=== PATIENT | male | born 1975 | race Hispanic/Latino ===

== ENCOUNTER 2022-07-02 10:34 | Emergency (ER) | payer OTHER ==
[~2022-07-02] VITALS: Ht 172.7 cm; Wt 131.1 kg
[2022-07-02] MEDS ORDERED: LIDOCAINE 2%-EPI 1:200,000 20 ML VIAL IJ SCH (11:00)
[2022-07-02] MEDS ORDERED: TETANUS/DIPHTHERIA TOXOID [ADULT] 0.5 ML VIAL IM ONE (11:00)
[2022-07-02] MEDS ORDERED: BACITRACIN 1 EACH PACKET TP ONE (11:30)
[2022-07-02 12:08] VITALS: BP 165/89
== END 2022-07-02 12:09 | disposition home or self-care (01) ==
LOC: EDH 10:34
DX: S61.512A Laceration without foreign body of left wrist, initial encounter (principal); W26.8XXA Contact with other sharp object(s), not elsewhere classified, initial encounter; Y93.89 Activity, other specified; Y92.89 Other specified places as the place of occurrence of the external cause; Y99.8 Other external cause status
CPT/HCPCS: 99283; 90714; 90471; 12002; J3490

== ENCOUNTER 2022-11-07 12:09 | Emergency (ER) | payer BC, OTHER ==
[~2022-11-07] VITALS: Ht 172.7 cm; Wt 129.3 kg
[2022-11-07] MEDS ORDERED: CYCL10TA16 PO (13:40)
[2022-11-07] MEDS ORDERED: IBUP-2070 PO (13:40)
[2022-11-07 14:42] VITALS: BP 174/89; PULSE 92; RESP 16; O2SAT 97
== END 2022-11-07 14:25 | disposition home or self-care (01) ==
LOC: EDH 12:09
DX: S76.911A Strain of unspecified muscles, fascia and tendons at thigh level, right thigh, initial encounter (principal); X58.XXXA Exposure to other specified factors, initial encounter; Y93.89 Activity, other specified; Y92.89 Other specified places as the place of occurrence of the external cause; Y99.8 Other external cause status
CPT/HCPCS: 93971